=== PATIENT | male | born 1935 | race Caucasian/White ===

== ENCOUNTER 2021-06-19 10:15 | Inpatient (IN) | payer MEDICARE, OTHER ==
[2021-06-19 11:11] LABS: CHLORIDE,CL 105 mEq/L (98-106); SODIUM,NA 141 mEq/L (136-145)
[2021-06-19] MEDS ORDERED: Furosemide 40 MG/4 ML VIAL IVPUSH ONE (11:11)
[2021-06-19] MEDS ORDERED: Albuterol 0.083% 2.5 MG/3 ML Neb Soln NEB ONE (11:22)
--- NOTE | 2021-06-19 11:23 | EDM.PDOC ---
ED HPI GENERAL MEDICAL PROBLEM - General Chief Complaint: General Stated Complaint: couldnt get out of bed Time Seen by Provider: 06/19/21 10:42 Source of Information: Reports: Patient, RN History Limitations: Reports: No Limitations - History of Present Illness INITIAL COMMENTS - FREE TEXT/NARRATIVE: States that he has been getting weaker over the last few days. He stopped ta alisha his lasix about 10-12 days ago as he didn't think it was helping. His legs are very edematous. He does not wear MAYRA hose. He has been coughing up wolf sputum. He has appt tomorrow with Dr. Flores to get results of possible zio patch report. (Pt thinks that is what it is called.) He has been coughing for years he states but not usually wolf sputum. He feels tired all the time but feels that it is getting worse. No chest pain. Denies having a fever. Onset: Gradual Associated Symptoms: Denies: Fever/Chills - Related Data Allergies Allergy/AdvReac Type Severity Reaction Status Date / Time No Known Allergies Allergy Verified 06/19/21 10:26 Home Meds: Home Meds Acetaminophen [Tylenol] 650 mg PO ASDIRECTED PRN 06/19/21 [History] Apixaban [Eliquis] 5 mg PO BID 06/19/21 [History] Ascorbic Acid [Vitamin C] 1,000 mg PO DAILY 06/19/21 [History] Cholecalciferol (Vitamin D3) [Vitamin D3] 125 mcg PO Q48H 06/19/21 [History] Diltiazem [Cardizem CD] 120 mg PO DAILY 06/19/21 [History] Ferrous Sulfate 325 mg PO DAILY 06/19/21 [History] Fluticasone/Umeclidin/Vilanter [Trelegy Ellipta 200-62.5-25] 1 inh INH DAILY 06/19/21 [History] Folic Acid 1 mg PO DAILY 06/19/21 [History] Furosemide 20 mg PO DAILY 06/19/21 [History] Magnesium 250 mg PO BEDTIME 06/19/21 [History] Tamsulosin [Tamsulosin 24 Hr] 0.4 mg PO DAILY 06/19/21 [History] Vitamin E 100 unit PO DAILY 06/19/21 [History] polyethylene glycoL 3350 [MiraLAX] 17 gm PO DAILY 06/19/21 [History] Past Medical History HEENT History: Reports: Cataract, Impaired Vision Cardiovascular History: Reports: Afib, Heart Failure - Past Surgical History GI Surgical History: Reports: Hernia, Abdominal, Hernia, Inguinal, Other (See Below) Other GI Surgeries/Procedures: abdominal infection Musculoskeletal Surgical History: Reports: Other (See Below) Other Musculoskeletal Surgeries/Procedures:: back surgery Social & Family History - Tobacco Use Tobacco Use Status *Q: Former Tobacco User Used Tobacco, but Quit: Yes Month/Year Tobacco Last Used: 1985 - Caffeine Use Caffeine Use: Reports: None - Recreational Drug Use Recreational Drug Use: No - Living Situation & Occupation Living situation: Reports: , with Spouse Occupation: Retired ED ROS GENERAL - Review of Systems Review Of Systems: See Below Constitutional: Reports: Weakness, Fatigue. Denies: Fever, Chills HEENT: Reports: No Symptoms Respiratory: Reports: Shortness of Breath, Wheezing, Cough Cardiovascular: Reports: Edema. Denies: Chest Pain GI/Abdominal: Denies: Constipation, Diarrhea : Reports: No Symptoms Musculoskeletal: Reports: No Symptoms Skin: Reports: No Symptoms Neurological: Reports: No Symptoms ED EXAM, GENERAL - Physical Exam Exam: See Below Exam Limited By: No Limitations General Appearance: Alert, WD/WN, Mild Distress Eye Exam: Bilateral Eye: PERRL Ears: Normal External Exam, Normal TMs Nose: Normal Inspection, Normal Mucosa Throat/Mouth: Normal Inspection, Normal Oropharynx Head: Atraumatic, Normocephalic Neck: Normal Inspection, Supple, Non-Tender, Full Range of Motion Respiratory/Chest: Rales (to bases), Wheezing Cardiovascular: Normal Peripheral Pulses, Regular Rate, Rhythm GI/Abdominal: Normal Bowel Sounds, Soft, Non-Tender Extremities: Pedal Edema (3-4+ bilaterally.) Neurological: Alert, Oriented Skin Exam: Warm, Dry, Intact Course - Vital Signs Last Recorded V/S: Last Vital Signs Temp 98.9 F 06/19/21 16:00 Pulse 88 06/19/21 10:15 Resp 18 06/19/21 16:00 BP 108/72 06/19/21 16:00 Pulse Ox 94 L 06/19/21 16:00 - Orders/Labs/Meds Orders: Active Orders 24 hr Category Date Time Status Chest 2V [CR] Stat Exams 06/19/21 11:03 Taken CULTURE SPUTUM + SMEAR [RM] Stat Lab 06/19/21 11:06 Results Medication Orders Albuterol/Ipratropium (Albuterol/Ipratropium 3.0-0.5 Mg/3 Ml Neb Soln) 3 ml NEB Q4H PRN PRN Reason: Shortness Of Breath/wheezing Albuterol/Ipratropium (Albuterol/Ipratropium 3.0-0.5 Mg/3 Ml Neb Soln) 3 ml NEB QID [facility] Last Admin: 06/19/21 20:00 Dose: 3 ml Documented by: Admin: 06/19/21 16:19 Dose: Not Given Documented by: BRYANT Apixaban (Apixaban 5 Mg Tab) 5 mg PO BID [facility] Last Admin: 06/19/21 20:00 Dose: 5 mg Documented by: LEE Ceftriaxone Sodium (Ceftriaxone 1 Gm Vial) 1 gm IVPUSH Q24H [facility] Last Admin: 06/19/21 15:26 Dose: 1 gm Documented by: BENITO Diltiazem HCl (Diltiazem 120 Mg Cap.Cd) 120 mg PO DAILY [facility] Ferrous Sulfate (Ferrous Sulfate 324 Mg Tab.Ec) 324 mg PO DAILY [facility] Furosemide (Furosemide 40 Mg/4 Ml Vial) 40 mg IVPUSH Q24H [facility] Azithromycin 500 mg/ Sodium (Chloride) 250 mls @ 250 mls/hr IV Q24H [facility] Last Admin: 06/19/21 15:25 Dose: 250 mls/hr Documented by: BENITO Magnesium Oxide (Magnesium Oxide 250 Mg Tab) 250 mg PO BEDTIME [facility] Last Admin: 06/19/21 20:00 Dose: 250 mg Documented by: LEE Non-Formulary Medication (Fluticasone/Umeclidin/Vilanter [Trelegy Ellipta 200-62.5-25]) 1 inh INH DAILY [facility] Pantoprazole Sodium (Pantoprazole 40 Mg Vial) 40 mg IVPUSH Q12H [facility] Last Admin: 06/19/21 20:00 Dose: 40 mg Documented by: LEE Polyethylene Glycol (Polyethylene Glycol 3350 Powder 17 Gm Packet) 17 gm PO DAILY [facility] Sodium Chloride (Sodium Chloride 0.9% 10 Ml Syringe) 10 ml FLUSH ASDIRECTED PRN PRN Reason: Keep Vein Open Tamsulosin HCl (Tamsulosin 0.4 Mg Cap.Er) 0.4 mg PO DAILY [facility] Labs: Laboratory Tests 06/19/21 06/19/21 06/19/21 Range/Units 06:00 10:44 10:44 WBC 16.8 H (4.0-11.0) 10^3/uL RBC 4.21 L (4.50-6.00) x10^6/uL Hgb 12.8 L (14.0-18.0) g/dL Hct 39.4 L (42.0-52.0) % MCV 93.6 (83.0-97.0) fL MCH 30.4 (27.0-32.0) pg MCHC 32.5 (32.0-36.0) g/dL RDW Coeff of Song 14.2 (11.0-15.0) % Plt Count 84 L (150-400) 10^3/uL Immature Gran % (Auto) 1.0 (0.0-4.9) % Neut % (Auto) 84.9 H (41-71) % Lymph % (Auto) 3.3 L (24-44) % [place] % (Auto) 10.5 H (0-10) % Eos % (Auto) 0.2 (0-6) % Baso % (Auto) 0.1 (0-1) % Neut # (Auto) 14.24 H (1.80-8.00) x10^3/uL Lymph # (Auto) 0.56 L (0.60-5.00) 10^3/uL [place] # (Auto) 1.76 H (0.00-1.50) 10^3/uL Eos # (Auto) 0.03 (0.00-1.50) 10^3/uL Baso # (Auto) 0.01 (0.00-0.50) 10^3/uL Immature Gran # (Auto) 0.16 (0.00-0.49) 10^3/uL Sodium 141 (136-145) mEq/L Potassium 4.9 (3.5-5.0) mEq/L Chloride 105 (98-106) mEq/L Carbon Dioxide 27 (21-32) mmol/L BUN 24 H (7-18) mg/dL Creatinine 1.0 (0.7-1.3) mg/dL Est Cr Clr Drug Dosing 53.74 mL/min Estimated GFR (MDRD) > 60 (>=60) mL/min Glucose 103 H (75-99) mg/dL Calcium 8.1 L (8.4-10.1) mg/dL Total Bilirubin 0.9 (0.0-1.0) mg/dL AST 12 L (15-37) U/L ALT 24 (12-78) U/L Alkaline Phosphatase 50 (46-116) U/L C-Reactive Protein 2.5 H (0.2-0.8) mg/dL NT-Pro-B Natriuret Pep 2288 H (0-1000) pg/mL Total Protein 5.6 L (6.4-8.2) g/dL Albumin 2.7 L (3.4-5.0) g/dL Urine Color (YELLOW) Urine Appearance (CLEAR) Urine pH (4.5-8.0) Ur Specific [place] (1.003-1.020) Urine Protein (NEGATIVE) mg/dL Urine Glucose (UA) (NEGATIVE) mg/dL Urine Ketones (NEGATIVE) mg/dL Urine Occult Blood (NEGATIVE) Urine Nitrite (NEGATIVE) Urine Bilirubin (NEGATIVE) Urine Urobilinogen (0.2-1.0) EU/dL Ur Leukocyte Esterase (NEGATIVE) Urine RBC Urine WBC SARS CoV-2 RNA Rapid MANFRED (NEGATIVE) 06/19/21 06/19/21 Range/Units 11:29 11:40 WBC (4.0-11.0) 10^3/uL RBC (4.50-6.00) x10^6/uL Hgb (14.0-18.0) g/dL Hct (42.0-52.0) % MCV (83.0-97.0) fL MCH (27.0-32.0) pg MCHC (32.0-36.0) g/dL RDW Coeff of Song (11.0-15.0) % Plt Count (150-400) 10^3/uL Immature Gran % (Auto) (0.0-4.9) % Neut % (Auto) (41-71) % Lymph % (Auto) (24-44) % [place] % (Auto) (0-10) % Eos % (Auto) (0-6) % Baso % (Auto) (0-1) % Neut # (Auto) (1.80-8.00) x10^3/uL Lymph # (Auto) (0.60-5.00) 10^3/uL [place] # (Auto) (0.00-1.50) 10^3/uL Eos # (Auto) (0.00-1.50) 10^3/uL Baso # (Auto) (0.00-0.50) 10^3/uL Immature Gran # (Auto) (0.00-0.49) 10^3/uL Sodium (136-145) mEq/L Potassium (3.5-5.0) mEq/L Chloride (98-106) mEq/L Carbon Dioxide (21-32) mmol/L BUN (7-18) mg/dL Creatinine (0.7-1.3) mg/dL Est Cr Clr Drug Dosing mL/min Estimated GFR (MDRD) (>=60) mL/min Glucose (75-99) mg/dL Calcium (8.4-10.1) mg/dL Total Bilirubin (0.0-1.0) mg/dL AST (15-37) U/L ALT (12-78) U/L Alkaline Phosphatase (46-116) U/L C-Reactive Protein (0.2-0.8) mg/dL NT-Pro-B Natriuret Pep (0-1000) pg/mL Total Protein (6.4-8.2) g/dL Albumin (3.4-5.0) g/dL Urine Color Yellow (YELLOW) Urine Appearance Clear (CLEAR) Urine pH 7.0 (4.5-8.0) Ur Specific [place] 1.020 (1.003-1.020) Urine Protein Negative (NEGATIVE) mg/dL Urine Glucose (UA) Negative (NEGATIVE) mg/dL Urine Ketones Negative (NEGATIVE) mg/dL Urine Occult Blood Negative (NEGATIVE) Urine Nitrite Negative (NEGATIVE) Urine Bilirubin Negative (NEGATIVE) Urine Urobilinogen 0.2 (0.2-1.0) EU/dL Ur Leukocyte Esterase Negative (NEGATIVE) Urine RBC TNP Urine WBC TNP SARS CoV-2 RNA Rapid MANFRED Negative (NEGATIVE) Meds: Medications Generic Name Dose Route Start Last Admin Trade Name Freq PRN Reason Stop Dose Admin Albuterol/Ipratropium 3 ml 06/19/21 12:25 Albuterol/Ipratropium 3.0-0.5 Mg/3 Ml Neb Soln NEB Q4H PRN Shortness Of Breath/wheezing Albuterol/Ipratropium 3 ml 06/19/21 16:00 06/19/21 20:00 Albuterol/Ipratropium 3.0-0.5 Mg/3 Ml Neb Soln NEB 3 ml QID STEPHANIA Administration Apixaban 5 mg 06/19/21 20:00 06/19/21 20:00 Apixaban 5 Mg Tab PO 5 mg BID [facility] Administration Ceftriaxone Sodium 1 gm 06/19/21 16:00 06/19/21 15:26 Ceftriaxone 1 Gm Vial IVPUSH 1 gm Q24H [facility] Administration Diltiazem HCl 120 mg 06/20/21 08:00 Diltiazem 120 Mg Cap.Cd PO DAILY [facility] Ferrous Sulfate 324 mg 06/20/21 08:00 Ferrous Sulfate 324 Mg Tab.Ec PO DAILY [facility] Furosemide 40 mg 06/20/21 08:00 Furosemide 40 Mg/4 Ml Vial IVPUSH Q24H [facility] Azithromycin 500 mg/ Sodium 250 mls @ 250 mls/hr 06/19/21 16:00 06/19/21 15:25 Chloride IV 250 mls/hr Q24H [facility] Administration Magnesium Oxide 250 mg 06/19/21 20:00 06/19/21 20:00 Magnesium Oxide 250 Mg Tab PO 250 mg BEDTIME [facility] Administration Non-Formulary Medication 1 inh 06/20/21 08:00 Fluticasone/Umeclidin/Vilanter [Trelegy Ellipta 200-62.5-25] INH DAILY [facility] Pantoprazole Sodium 40 mg 06/19/21 20:00 06/19/21 20:00 Pantoprazole 40 Mg Vial IVPUSH 40 mg Q12H [facility] Administration Polyethylene Glycol 17 gm 06/20/21 08:00 Polyethylene Glycol 3350 Powder 17 Gm Packet PO DAILY [facility] Sodium Chloride 10 ml 06/19/21 12:25 Sodium Chloride 0.9% 10 Ml Syringe FLUSH ASDIRECTED PRN Keep Vein Open Tamsulosin HCl 0.4 mg 06/20/21 08:00 Tamsulosin 0.4 Mg Cap.Er PO DAILY [facility] Discontinued Medications Generic Name Dose Route Start Last Admin Trade Name Freq PRN Reason Stop Dose Admin Albuterol 2.5 mg 06/19/21 11:22 06/19/21 11:27 Albuterol 0.083% 2.5 Mg/3 Ml Neb Soln NEB 06/19/21 11:23 2.5 mg ONETIME ONE Administration Albuterol/Ipratropium 3 ml 06/19/21 16:00 06/19/21 15:24 Albuterol/Ipratropium 3.0-0.5 Mg/3 Ml Neb Soln NEB 3 ml Q4H [facility] Administration Furosemide 40 mg 06/19/21 11:11 06/19/21 11:16 Furosemide 40 Mg/4 Ml Vial IVPUSH 06/19/21 11:12 40 mg ONETIME ONE Administration - Re-Assessments/Exams Free Text/Narrative Re-Assessment/Exam: 06/20/21 01:33 Pt will be admitted for IV antibiotics and IV lasix. Will try to diuresis him and get him to stay on his Lasix. Will recheck labs in the morning. Discussed pt with Dr. Mccann. Departure - Departure Time of Disposition: 13:00 Disposition: Admitted As Inpatient 65 Clinical Impression: Pneumonia, CHF, Congestive heart failure - Discharge Information *PRESCRIPTION DRUG MONITORING PROGRAM REVIEWED*: Not Applicable *COPY OF PRESCRIPTION DRUG MONITORING REPORT IN PATIENT DAVID: Not Applicable Sepsis Event Note (ED) - Evaluation Sepsis Screening Result: No Definite Risk - Problem List & Annotations (1) CHF, Congestive heart failure SNOMED Code(s): 70805548 Code(s): I50.9 - HEART FAILURE, UNSPECIFIED Status: Acute Priority: High Current Visit: Yes (2) Pneumonia SNOMED Code(s): 987341974 Code(s): J18.9 - PNEUMONIA, UNSPECIFIED ORGANISM Status: Acute Priority: High Current Visit: Yes - Problem List Review Problem List Initiated/Reviewed/Updated: Yes - My Orders Last 24 Hours: My Active Orders 06/19/21 11:03 Chest 2V [CR] Stat 06/19/21 11:06 CULTURE SPUTUM + SMEAR [RM] Stat - Assessment/Plan Admission H&P: Please use this note as an admission H&P Last 24 Hours: My Active Orders 06/19/21 11:03 Chest 2V [CR] Stat 06/19/21 11:06 CULTURE SPUTUM + SMEAR [RM] Stat
[2021-06-19] MEDS ORDERED: Albuterol/Ipratropium 3.0-0.5 MG/3 ML Neb Soln NEB PRN (12:25)
[2021-06-19] MEDS ORDERED: Sodium Chloride 0.9% 10 ML Syringe FLUSH PRN (12:25)
[2021-06-19] MEDS ORDERED: Non-Formulary Medication 1 Each (Budesonide/Formoterol 6 GM Inhaler) INH SCH (12:45)
[2021-06-19] MEDS ORDERED: Azithromycin 500 MG in Sodium Chloride 0.9% 250 ML IV SCH (16:00)
[2021-06-19] MEDS ORDERED: cefTRIAXone 1 GM Vial IVPUSH SCH (16:00)
[2021-06-19] MEDS ORDERED: Albuterol/Ipratropium 3.0-0.5 MG/3 ML Neb Soln NEB SCH (16:00)
[2021-06-19] MEDS: Albuterol/Ipratropium 3.0-0.5 MG/3 ML Neb Soln NEB SCH ×2 (16:19→20:00)
[2021-06-19] MEDS: Apixaban 5 MG Tab PO SCH (20:00)
[2021-06-19] MEDS: Pantoprazole 40 MG Vial IVPUSH SCH (20:00)
[2021-06-20] MEDS: Apixaban 5 MG Tab PO SCH ×2 (07:32→19:41)
[2021-06-20] MEDS: Diltiazem 120 MG Cap.CD PO SCH (07:32)
[2021-06-20] MEDS: Ferrous Sulfate 324 MG Tab.EC PO SCH (07:32)
[2021-06-20] MEDS: Albuterol/Ipratropium 3.0-0.5 MG/3 ML Neb Soln NEB SCH ×4 (07:33→19:41)
[2021-06-20] MEDS: Tamsulosin 0.4 MG Cap.ER PO SCH (07:33)
[2021-06-20] MEDS: Pantoprazole 40 MG Vial IVPUSH SCH ×2 (07:33→19:41)
[2021-06-20] MEDS: Polyethylene Glycol 3350 Powder 17 GM Packet PO SCH (07:33)
[2021-06-20 07:43] LABS: CHLORIDE,CL 105 mEq/L (98-106); SODIUM,NA 141 mEq/L (136-145)
[2021-06-20] MEDS ORDERED: Furosemide 40 MG/4 ML VIAL IVPUSH SCH (08:00)
[2021-06-20] MEDS: UMECLIDINIUM INH SCH (09:44)
[2021-06-20] MEDS: FLUTICASONE INH SCH (09:44)
[2021-06-20] MEDS: VILANTEROL INH SCH (09:44)
--- NOTE | 2021-06-20 11:35 | PN ---
DATE: 06/20/2021 S: Mr. Woodson was admitted by Paula Foley for pneumonia and CHF, and an elevated white count and CRP, and his proBNP was up. I did review his chest x-ray and this looks to be more of a pneumonic process. He has had a little bit of tachycardia and does suffer from atrial fibrillation. Rate right now is 78. Blood pressures have been fine. He is actually down I believe over 2 pounds after getting IV Lasix. O: GENERAL: This gentleman is pleasant and cooperative. He is resting comfortably in a recliner and does not appear in distress. NECK: Neck veins are nondistended. LUNGS: He has rales in his right mid and base, but left side appears clear. CARDIAC: Cardiac tones are irregular, but controlled. ABDOMEN: Nontender. He has scant ankle edema at this time. ASSESSMENT: 1. COMMUNITY-ACQUIRED PNEUMONIA. 2. 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 P: We will get a repeat echo on him. Continue IV antibiotics. Overall, he looks clinically well. We will have PT see him for strengthening as his age precludes him from getting around a lot at home. ANTHONY/BRONWYN /[id number]
[2021-06-20] MEDS: Levofloxacin/Dextrose 5%-Water 500 MG in Premix Bag 1 BAG IV SCH (11:55)
[2021-06-20] MEDS: Temazepam 15 MG Cap PO PRN (19:41)
[2021-06-21 06:55] LABS: CHLORIDE,CL 104 mEq/L (98-106); SODIUM,NA 139 mEq/L (136-145)
[2021-06-21] MEDS: Polyethylene Glycol 3350 Powder 17 GM Packet PO SCH (07:48)
[2021-06-21] MEDS: Pantoprazole 40 MG Vial IVPUSH SCH ×2 (07:48→20:10)
[2021-06-21] MEDS: Albuterol/Ipratropium 3.0-0.5 MG/3 ML Neb Soln NEB SCH ×4 (07:48→20:11)
[2021-06-21] MEDS: Diltiazem 120 MG Cap.CD PO SCH (07:48)
[2021-06-21] MEDS: Ferrous Sulfate 324 MG Tab.EC PO SCH (07:49)
[2021-06-21] MEDS: Tamsulosin 0.4 MG Cap.ER PO SCH (07:49)
[2021-06-21] MEDS: Furosemide 40 MG Tab PO SCH (07:49)
[2021-06-21] MEDS: Apixaban 5 MG Tab PO SCH ×2 (07:49→20:11)
[2021-06-21] MEDS: UMECLIDINIUM INH SCH (08:00)
[2021-06-21] MEDS: VILANTEROL INH SCH (08:00)
[2021-06-21] MEDS: FLUTICASONE INH SCH (08:00)
--- NOTE | 2021-06-21 08:15 | PCM.PN ---
- General Info Date of Service: 06/21/21 Admission Dx/Problem (Free Text): RLL Pneumonia Acute on chronic diastolic CHF Subjective Update: Patient up resting in chair. Denies shortness of breath. Admits to cough but states "have had that for 30 years". Productive of wolf sputum at times. In itial culture shows gram negative rods. Await full sensitivities/ID. Afebrile. Blood pressure is stable. Has been eating well. Is weak. Did fall yesterday with PT. Sustained significant bruising to right arm, skin tear. Patient states he tripped when the walker caught on the sallie. Does require assist for transfers, has difficulty getting up from the toilet, chair. Functional Status: Reports: Pain Controlled, Tolerating Diet, Ambulating - Review of Systems General: Reports: Weakness, Fatigue, Malaise HEENT: Reports: Rhinitis. Denies: Ear Pain, Sinus Congestion Pulmonary: Reports: Shortness of Breath, Cough, Sputum Cardiovascular: Reports: Edema. Denies: Chest Pain, Lightheadedness Gastrointestinal: Denies: Abdominal Pain, Nausea, Vomiting Genitourinary: Reports: No Symptoms Musculoskeletal: Reports: Arm Pain, Back Pain Skin: Reports: Bruising, Other (bruising noted to arms, chest) Neurological: Reports: Weakness - Patient Data Vitals - Most Recent: Last Vital Signs Temp 97.1 F 06/21/21 03:47 Pulse 112 H 06/21/21 07:48 Resp 20 06/21/21 03:47 BP 123/82 06/21/21 07:48 Pulse Ox 93 L 06/21/21 03:47 Weight - Most Recent: 197 lb 9.6 oz I&O - Last 24 Hours: Intake & Output 06/20/21 06/21/21 06/21/21 22:59 06:59 14:59 Intake Total 700 300 Output Total 900 350 Balance -200 -50 Lab Results Last 24 Hours: Laboratory Results - last 24 hr 06/21/21 06/21/21 Range/Units 06:40 06:40 WBC 12.9 H (4.0-11.0) 10^3/uL RBC 3.87 L (4.50-6.00) x10^6/uL Hgb 12.0 L (14.0-18.0) g/dL Hct 36.0 L (42.0-52.0) % MCV 93.0 (83.0-97.0) fL MCH 31.0 (27.0-32.0) pg MCHC 33.3 (32.0-36.0) g/dL RDW Coeff of Song 14.5 (11.0-15.0) % Plt Count 72 L (150-400) 10^3/uL Immature Gran % (Auto) 1.8 (0.0-4.9) % Neut % (Auto) 84.4 H (41-71) % Lymph % (Auto) 4.0 L (24-44) % [place] % (Auto) 9.6 (0-10) % Eos % (Auto) 0.1 (0-6) % Baso % (Auto) 0.1 (0-1) % Neut # (Auto) 10.85 H (1.80-8.00) x10^3/uL Lymph # (Auto) 0.52 L (0.60-5.00) 10^3/uL [place] # (Auto) 1.24 (0.00-1.50) 10^3/uL Eos # (Auto) 0.01 (0.00-1.50) 10^3/uL Baso # (Auto) 0.01 (0.00-0.50) 10^3/uL Immature Gran # (Auto) 0.23 (0.00-0.49) 10^3/uL Sodium 139 (136-145) mEq/L Potassium 4.2 (3.5-5.0) mEq/L Chloride 104 (98-106) mEq/L Carbon Dioxide 28 (21-32) mmol/L BUN 25 H (7-18) mg/dL Creatinine 0.9 (0.7-1.3) mg/dL Est Cr Clr Drug Dosing 59.71 mL/min Estimated GFR (MDRD) > 60 (>=60) mL/min Glucose 112 H (75-99) mg/dL Calcium 8.0 L (8.4-10.1) mg/dL C-Reactive Protein 2.7 H (0.2-0.8) mg/dL Darian Results Last 24 Hours: Microbiology 06/19/21 13:11 Aerobic Blood Culture - Preliminary Blood - Venous - Lab Draw NO GROWTH AFTER 1 DAY Anaerobic Blood Culture - Preliminary NO GROWTH AFTER 1 DAY 06/19/21 13:11 Aerobic Blood Culture - Preliminary Blood - Venous NO GROWTH AFTER 1 DAY Anaerobic Blood Culture - Preliminary NO GROWTH AFTER 1 DAY 06/19/21 11:06 Gram Stain - Final Sputum - Expectorated Sputum Culture - Preliminary Gram Negative Rods Med Orders - Current: Current Medications Albuterol/Ipratropium (Albuterol/Ipratropium 3.0-0.5 Mg/3 Ml Neb Soln) 3 ml NEB Q4H PRN PRN Reason: Shortness Of Breath/wheezing Albuterol/Ipratropium (Albuterol/Ipratropium 3.0-0.5 Mg/3 Ml Neb Soln) 3 ml NEB QID [facility] Last Admin: 06/21/21 07:48 Dose: 3 ml Documented by: Apixaban (Apixaban 5 Mg Tab) 5 mg PO BID [facility] Last Admin: 06/21/21 07:49 Dose: 5 mg Documented by: Diltiazem HCl (Diltiazem 120 Mg Cap.Cd) 120 mg PO DAILY [facility] Last Admin: 06/21/21 07:48 Dose: 120 mg Documented by: Ferrous Sulfate (Ferrous Sulfate 324 Mg Tab.Ec) 324 mg PO DAILY [facility] Last Admin: 06/21/21 07:49 Dose: 324 mg Documented by: Furosemide (Furosemide 40 Mg Tab) 40 mg PO DAILY [facility] Last Admin: 06/21/21 07:49 Dose: 40 mg Documented by: Levofloxacin/Dextrose 500 mg/ (Premix) 100 mls @ 100 mls/hr IV Q24H [facility] Last Admin: 06/20/21 11:55 Dose: 100 mls/hr Documented by: Magnesium Oxide (Magnesium Oxide 250 Mg Tab) 250 mg PO BEDTIME [facility] Last Admin: 06/20/21 19:41 Dose: 250 mg Documented by: Fluticasone/Umeclidinium/Vilanterol [Trelegy Ellipta 200-62.5- 25mcg] Ptom 0 inh INH DAILY [facility] Last Admin: 06/21/21 08:00 Dose: 1 inh Documented by: Pantoprazole Sodium (Pantoprazole 40 Mg Vial) 40 mg IVPUSH Q12H [facility] Last Admin: 06/21/21 07:48 Dose: 40 mg Documented by: Polyethylene Glycol (Polyethylene Glycol 3350 Powder 17 Gm Packet) 17 gm PO DAILY [facility] Last Admin: 06/21/21 07:48 Dose: 17 gm Documented by: Sodium Chloride (Sodium Chloride 0.9% 10 Ml Syringe) 10 ml FLUSH ASDIRECTED PRN PRN Reason: Keep Vein Open Tamsulosin HCl (Tamsulosin 0.4 Mg Cap.Er) 0.4 mg PO DAILY [facility] Last Admin: 06/21/21 07:49 Dose: 0.4 mg Documented by: Temazepam (Temazepam 15 Mg Cap) 15 mg PO BEDTIME PRN PRN Reason: Insomnia Last Admin: 06/20/21 19:41 Dose: 15 mg Documented by: Discontinued Medications Albuterol (Albuterol 0.083% 2.5 Mg/3 Ml Neb Soln) 2.5 mg NEB ONETIME ONE Stop: 06/19/21 11:23 Last Admin: 06/19/21 11:27 Dose: 2.5 mg Documented by: Albuterol/Ipratropium (Albuterol/Ipratropium 3.0-0.5 Mg/3 Ml Neb Soln) 3 ml NEB Q4H [facility] Last Admin: 06/19/21 15:24 Dose: 3 ml Documented by: Ceftriaxone Sodium (Ceftriaxone 1 Gm Vial) 1 gm IVPUSH Q24H [facility] Last Admin: 06/19/21 15:26 Dose: 1 gm Documented by: Furosemide (Furosemide 40 Mg/4 Ml Vial) 40 mg IVPUSH ONETIME ONE Stop: 06/19/21 11:12 Last Admin: 06/19/21 11:16 Dose: 40 mg Documented by: Furosemide (Furosemide 40 Mg/4 Ml Vial) 40 mg IVPUSH Q24H [facility] Last Admin: 06/20/21 07:34 Dose: 40 mg Documented by: Azithromycin 500 mg/ Sodium (Chloride) 250 mls @ 250 mls/hr IV Q24H [facility] Last Admin: 06/19/21 15:25 Dose: 250 mls/hr Documented by: - Exam General: Alert, Oriented, Cooperative HEENT: Mucous Membr. Moist/[place] Neck: Supple Lungs: Decreased Breath Sounds, Crackles (RLL) Cardiovascular: Irregular Rhythm GI/Abdominal Exam: Normal Bowel Sounds, Soft, Non-Tender Extremities: Pedal Edema (1+), Other (bruising to arms, open area to elbow with tegaderm present) Skin: Ecchymosis Wound/Incisions: Drainage (blood noted from open area on elbow) Neurological: No New Focal Deficit Psy/Mental Status: Alert - Patient Data Lab Results Last 24 hrs: Laboratory Results - last 24 hr 06/21/21 06/21/21 Range/Units 06:40 06:40 WBC 12.9 H (4.0-11.0) 10^3/uL RBC 3.87 L (4.50-6.00) x10^6/uL Hgb 12.0 L (14.0-18.0) g/dL Hct 36.0 L (42.0-52.0) % MCV 93.0 (83.0-97.0) fL MCH 31.0 (27.0-32.0) pg MCHC 33.3 (32.0-36.0) g/dL RDW Coeff of Song 14.5 (11.0-15.0) % Plt Count 72 L (150-400) 10^3/uL Immature Gran % (Auto) 1.8 (0.0-4.9) % Neut % (Auto) 84.4 H (41-71) % Lymph % (Auto) 4.0 L (24-44) % [place] % (Auto) 9.6 (0-10) % Eos % (Auto) 0.1 (0-6) % Baso % (Auto) 0.1 (0-1) % Neut # (Auto) 10.85 H (1.80-8.00) x10^3/uL Lymph # (Auto) 0.52 L (0.60-5.00) 10^3/uL [place] # (Auto) 1.24 (0.00-1.50) 10^3/uL Eos # (Auto) 0.01 (0.00-1.50) 10^3/uL Baso # (Auto) 0.01 (0.00-0.50) 10^3/uL Immature Gran # (Auto) 0.23 (0.00-0.49) 10^3/uL Sodium 139 (136-145) mEq/L Potassium 4.2 (3.5-5.0) mEq/L Chloride 104 (98-106) mEq/L Carbon Dioxide 28 (21-32) mmol/L BUN 25 H (7-18) mg/dL Creatinine 0.9 (0.7-1.3) mg/dL Est Cr Clr Drug Dosing 59.71 mL/min Estimated GFR (MDRD) > 60 (>=60) mL/min Glucose 112 H (75-99) mg/dL Calcium 8.0 L (8.4-10.1) mg/dL C-Reactive Protein 2.7 H (0.2-0.8) mg/dL Result Diagrams: 06/21/21 06:40 06/21/21 06:40 Darian Results Last 24 hrs: Microbiology 06/19/21 13:11 Aerobic Blood Culture - Preliminary Blood - Venous - Lab Draw NO GROWTH AFTER 1 DAY Anaerobic Blood Culture - Preliminary NO GROWTH AFTER 1 DAY 06/19/21 13:11 Aerobic Blood Culture - Preliminary Blood - Venous NO GROWTH AFTER 1 DAY Anaerobic Blood Culture - Preliminary NO GROWTH AFTER 1 DAY 06/19/21 11:06 Gram Stain - Final Sputum - Expectorated Sputum Culture - Preliminary Gram Negative Rods Sepsis Event Note - Evaluation Sepsis Screening Result: No Definite Risk - Focused Exam Vital Signs: Vital Signs Temp Pulse Resp BP BP Pulse Ox 06/21/21 07:48 112 H 123/82 06/21/21 03:47 97.1 F 20 110/72 93 L 06/21/21 00:00 96.6 F L 20 126/68 93 L - Problem List & Annotations (1) Pneumonia SNOMED Code(s): 944174589 Code(s): J18.9 - PNEUMONIA, UNSPECIFIED ORGANISM Status: Acute Priority: High Current Visit: Yes (2) CHF, Congestive heart failure SNOMED Code(s): 08520616 Code(s): I50.9 - HEART FAILURE, UNSPECIFIED Status: Acute Priority: High Current Visit: Yes - Problem List Review Problem List Initiated/Reviewed/Updated: Yes - Assessment Assessment:: RLL Pneumonia Acute on chronic diastolic congestive heart failure - Plan Plan:: Will continue with IV antibiotics for pneumonia. DuoNebs as directed. Lasix for CHF. Echocardiogram was done, is stable. Labs show WBC of 12.9, essentially unchanged from yesterday. CPR is 2.7, down slightly. Sputum culture shows gram negative rods, waiting on full culture report. Electrolytes are normal. Continue with physical therapy for weakness. Repeat labs in am. Continue IV antibiotics and PT. Possible discharge in the next 1-2 days pending response to treatment and if weakness/stability improves.
[2021-06-21] MEDS: Levofloxacin/Dextrose 5%-Water 500 MG in Premix Bag 1 BAG IV SCH (12:01)
[2021-06-21] MEDS: Temazepam 15 MG Cap PO PRN (20:18)
[2021-06-22] MEDS: Pantoprazole 40 MG Vial IVPUSH SCH (08:00)
[2021-06-22] MEDS: Albuterol/Ipratropium 3.0-0.5 MG/3 ML Neb Soln NEB SCH (08:00)
[2021-06-22] MEDS: Tamsulosin 0.4 MG Cap.ER PO SCH (08:01)
[2021-06-22] MEDS: Furosemide 40 MG Tab PO SCH (08:02)
[2021-06-22] MEDS: Ferrous Sulfate 324 MG Tab.EC PO SCH (08:02)
[2021-06-22] MEDS: Apixaban 5 MG Tab PO SCH (08:02)
[2021-06-22] MEDS: Polyethylene Glycol 3350 Powder 17 GM Packet PO SCH (08:03)
[2021-06-22] MEDS: Diltiazem 120 MG Cap.CD PO SCH (08:04)
[2021-06-22] MEDS: UMECLIDINIUM INH SCH (08:05)
[2021-06-22] MEDS: VILANTEROL INH SCH (08:05)
[2021-06-22] MEDS: FLUTICASONE INH SCH (08:05)
[2021-06-22 08:11] VITALS: BP 108/69; PULSE 107
--- NOTE | 2021-06-22 10:22 | PCM.DCSUM1 ---
Discharge Summary - Hospital Course Free Text/Narrative:: Jesus Alberto is an 86 year old male who presented to ER with complaints of getting weak. He had stopped taking his Lasix as he did not feel it was helping him and now notes his edema has gotten much worse. Also noted increased cough with wolf sputum. More short of breath. Admits has had a persistent cough for many years due to chronic lung disease but had gotten more productive. Has had more falls. Walking has become more difficult. Denied chest pain. No fevers. Chest xray done in ER does show Diagnosis: Stroke: No Modified [place] Scale: No Symptoms at All Modified [place] Scale Score: 0 - Discharge Data Discharge Date: 06/22/21 Discharge Disposition: DC/Tfer to SNF 03 Condition: Good - Referral to Home Health Primary Care Physician: Tung Flores MD - Discharge Diagnosis/Problem(s) (1) Pneumonia SNOMED Code(s): 024077636 ICD Code: J18.9 - PNEUMONIA, UNSPECIFIED ORGANISM Status: Acute Priority: High Current Visit: Yes (2) CHF, Congestive heart failure SNOMED Code(s): 03487014 ICD Code: I50.9 - HEART FAILURE, UNSPECIFIED Status: Acute Priority: High Current Visit: Yes (3) Weakness SNOMED Code(s): 50003074 ICD Code: R53.1 - WEAKNESS Status: Acute Current Visit: Yes - Patient Summary/Data Complications: none Consults: Consultations 06/19/21 13:13 PT Evaluation and Treatment [CONS] Routine 06/20/21 10:20 Consult to Physical Therapy [PT Evaluation and Treatment] [CONS] Routine Hospital Course: Patient remains weak. Has difficulty ambulating as a result. Did fall on day 2 while walking with PT. STates has difficult time with ankles and knees. Edema still 2+ in legs. Denies feeling more short of breath. Lung sounds note crackles in the bases and rhonchi throughout. Oxygen sats over 90% on room air. Afebrile. WBC increased to 14 again today but CRP is down to 1.7. Sputum culture did grow pseudomonas, sensitive to Levaquin. Complains of constipation today. Will give dulcolax suppository today. Appetite has been good so "making the bowels worse". Did discuss transfer to senior living due to weakness, inability to ambulate well and need for ongoing IV antibiotics. Will repeat labs in am. - Patient Instructions Diet: Low Sodium Activity: As Tolerated - Discharge Plan *PRESCRIPTION DRUG MONITORING PROGRAM REVIEWED*: Not Applicable *COPY OF PRESCRIPTION DRUG MONITORING REPORT IN PATIENT DAVID: Not Applicable Home Medications: Home Meds Acetaminophen [Tylenol] 650 mg PO ASDIRECTED PRN 06/19/21 [History] Apixaban [Eliquis] 5 mg PO BID 06/19/21 [History] Ascorbic Acid [Vitamin C] 1,000 mg PO DAILY 06/19/21 [History] Cholecalciferol (Vitamin D3) [Vitamin D3] 125 mcg PO Q48H 06/19/21 [History] Diltiazem [Cardizem CD] 120 mg PO DAILY 06/19/21 [History] Ferrous Sulfate 325 mg PO DAILY 06/19/21 [History] Fluticasone/Umeclidin/Vilanter [Trelegy Ellipta 200-62.5-25] 1 inh INH DAILY 06/19/21 [History] Folic Acid 1 mg PO DAILY 06/19/21 [History] Furosemide 20 mg PO DAILY 06/19/21 [History] Magnesium 250 mg PO BEDTIME 06/19/21 [History] Tamsulosin [Tamsulosin 24 Hr] 0.4 mg PO DAILY 06/19/21 [History] Vitamin E 100 unit PO DAILY 06/19/21 [History] polyethylene glycoL 3350 [MiraLAX] 17 gm PO DAILY 06/19/21 [History] Albuterol [Proventil Neb Soln] 2.5 mg NEB DAILY 06/21/21 [History] Arformoterol [Brovana] 1 puff INH BID 06/21/21 [History] Budesonide [Pulmicort] 0.25 mg NEB BID 06/21/21 [History] Ipratropium [Atrovent] 0.5 mg NEB DAILY 06/21/21 [History] Forms: ED Department Discharge Referrals: Tung Flores MD [Primary Care Provider] - - Discharge Summary/Plan Comment DC Time >30 min.: Yes Total # of Minutes for Discharge Time: 40 - General Info Date of Service: 06/22/21 Admission Dx/Problem (Free Text: RLL Pneumonia Acute on chronic diastolic CHF Functional Status: Reports: Pain Controlled, Tolerating Diet. Denies: Ambulating - Review of Systems General: Reports: Weakness, Fatigue, Malaise HEENT: Denies: Ear Pain, Headaches, Sinus Congestion, Rhinitis Pulmonary: Reports: Shortness of Breath, Cough, Sputum Cardiovascular: Reports: Edema. Denies: Chest Pain, Lightheadedness Gastrointestinal: Reports: Constipation. Denies: Abdominal Pain, Decreased Appetite, Diarrhea, Nausea Genitourinary: Reports: Incontinence Musculoskeletal: Reports: Back Pain, Leg Pain Skin: Reports: Bruising Neurological: Reports: Weakness - Patient Data Vitals - Most Recent: Last Vital Signs Temp 97.8 F 06/22/21 08:00 Pulse 107 H 06/22/21 08:04 Resp 20 06/22/21 08:00 BP 108/69 06/22/21 08:04 Pulse Ox 93 L 06/22/21 08:00 Weight - Most Recent: 194 lb I&O - Last 24 hours: Intake & Output 06/21/21 06/22/21 06/22/21 22:59 06:59 14:59 Intake Total 1200 300 Output Total 450 Balance 1200 -150 Lab Results - Last 24 hrs: Laboratory Results - last 24 hr 06/22/21 06/22/21 Range/Units 06:00 06:00 WBC 14.4 H (4.0-11.0) 10^3/uL RBC 3.79 L (4.50-6.00) x10^6/uL Hgb 11.8 L (14.0-18.0) g/dL Hct 35.0 L (42.0-52.0) % MCV 92.3 (83.0-97.0) fL MCH 31.1 (27.0-32.0) pg MCHC 33.7 (32.0-36.0) g/dL RDW Coeff of Song 14.5 (11.0-15.0) % Plt Count 83 L (150-400) 10^3/uL Immature Gran % (Auto) 1.7 (0.0-4.9) % Neut % (Auto) 85.6 H (41-71) % Lymph % (Auto) 3.5 L (24-44) % Wood % (Auto) 9.0 (0-10) % Eos % (Auto) 0.1 (0-6) % Baso % (Auto) 0.1 (0-1) % Neut # (Auto) 12.34 H (1.80-8.00) x10^3/uL Lymph # (Auto) 0.50 L (0.60-5.00) 10^3/uL Wood # (Auto) 1.29 (0.00-1.50) 10^3/uL Eos # (Auto) 0.01 (0.00-1.50) 10^3/uL Baso # (Auto) 0.02 (0.00-0.50) 10^3/uL Immature Gran # (Auto) 0.25 (0.00-0.49) 10^3/uL Sodium 136 (136-145) mEq/L Potassium 4.5 (3.5-5.0) mEq/L Chloride 102 (98-106) mEq/L Carbon Dioxide 27 (21-32) mmol/L BUN 29 H (7-18) mg/dL Creatinine 1.2 (0.7-1.3) mg/dL Est Cr Clr Drug Dosing 44.78 mL/min Estimated GFR (MDRD) 57 L (>=60) mL/min Glucose 124 H (75-99) mg/dL Calcium 8.1 L (8.4-10.1) mg/dL C-Reactive Protein 1.7 H (0.2-0.8) mg/dL MANISH Results - Last 24 hrs: Microbiology 06/19/21 13:11 Aerobic Blood Culture - Preliminary Blood - Venous - Lab Draw NO GROWTH AFTER 2 DAYS Anaerobic Blood Culture - Preliminary NO GROWTH AFTER 2 DAYS 06/19/21 13:11 Aerobic Blood Culture - Preliminary Blood - Venous NO GROWTH AFTER 2 DAYS Anaerobic Blood Culture - Preliminary NO GROWTH AFTER 2 DAYS 06/19/21 11:06 Gram Stain - Final Sputum - Expectorated Sputum Culture - Final Pseudomonas Aeruginosa Med Orders - Current: Current Medications Albuterol/Ipratropium (Albuterol/Ipratropium 3.0-0.5 Mg/3 Ml Neb Soln) 3 ml NEB Q4H PRN PRN Reason: Shortness Of Breath/wheezing Albuterol/Ipratropium (Albuterol/Ipratropium 3.0-0.5 Mg/3 Ml Neb Soln) 3 ml NEB QID [facility] Last Admin: 06/22/21 08:00 Dose: 3 ml Documented by: Apixaban (Apixaban 5 Mg Tab) 5 mg PO BID [facility] Last Admin: 06/22/21 08:02 Dose: 5 mg Documented by: Diltiazem HCl (Diltiazem 120 Mg Cap.Cd) 120 mg PO DAILY [facility] Last Admin: 06/22/21 08:04 Dose: 120 mg Documented by: Ferrous Sulfate (Ferrous Sulfate 324 Mg Tab.Ec) 324 mg PO DAILY [facility] Last Admin: 06/22/21 08:02 Dose: 324 mg Documented by: Furosemide (Furosemide 40 Mg Tab) 40 mg PO DAILY [facility] Last Admin: 06/22/21 08:02 Dose: 40 mg Documented by: Levofloxacin/Dextrose 500 mg/ (Premix) 100 mls @ 100 mls/hr IV Q24H [facility] Last Admin: 06/21/21 12:01 Dose: 100 mls/hr Documented by: Magnesium Oxide (Magnesium Oxide 250 Mg Tab) 250 mg PO BEDTIME [facility] Last Admin: 06/21/21 20:11 Dose: 250 mg Documented by: Fluticasone/Umeclidinium/Vilanterol [Trelegy Ellipta 200-62.5- 25mcg] Ptom 0 inh INH DAILY [facility] Last Admin: 06/22/21 08:05 Dose: 1 inh Documented by: Pantoprazole Sodium (Pantoprazole 40 Mg Vial) 40 mg IVPUSH Q12H [facility] Last Admin: 06/22/21 08:00 Dose: 40 mg Documented by: Polyethylene Glycol (Polyethylene Glycol 3350 Powder 17 Gm Packet) 17 gm PO DAILY [facility] Last Admin: 06/22/21 08:03 Dose: 17 gm Documented by: Sodium Chloride (Sodium Chloride 0.9% 10 Ml Syringe) 10 ml FLUSH ASDIRECTED PRN PRN Reason: Keep Vein Open Tamsulosin HCl (Tamsulosin 0.4 Mg Cap.Er) 0.4 mg PO DAILY [facility] Last Admin: 06/22/21 08:01 Dose: 0.4 mg Documented by: Temazepam (Temazepam 15 Mg Cap) 15 mg PO BEDTIME PRN PRN Reason: Insomnia Last Admin: 06/21/21 20:18 Dose: 15 mg Documented by: Discontinued Medications Albuterol (Albuterol 0.083% 2.5 Mg/3 Ml Neb Soln) 2.5 mg NEB ONETIME ONE Stop: 06/19/21 11:23 Last Admin: 06/19/21 11:27 Dose: 2.5 mg Documented by: Albuterol/Ipratropium (Albuterol/Ipratropium 3.0-0.5 Mg/3 Ml Neb Soln) 3 ml NEB Q4H [facility] Last Admin: 06/19/21 15:24 Dose: 3 ml Documented by: Ceftriaxone Sodium (Ceftriaxone 1 Gm Vial) 1 gm IVPUSH Q24H [facility] Last Admin: 06/19/21 15:26 Dose: 1 gm Documented by: Furosemide (Furosemide 40 Mg/4 Ml Vial) 40 mg IVPUSH ONETIME ONE Stop: 06/19/21 11:12 Last Admin: 06/19/21 11:16 Dose: 40 mg Documented by: Furosemide (Furosemide 40 Mg/4 Ml Vial) 40 mg IVPUSH Q24H [facility] Last Admin: 06/20/21 07:34 Dose: 40 mg Documented by: Azithromycin 500 mg/ Sodium (Chloride) 250 mls @ 250 mls/hr IV Q24H [facility] Last Admin: 06/19/21 15:25 Dose: 250 mls/hr Documented by: - Exam General: Reports: Alert, Oriented, Cooperative HEENT: Reports: Mucous Membr. Moist/[place] Neck: Reports: Supple Lungs: Reports: Decreased Breath Sounds, Crackles, Rhonchi Cardiovascular: Reports: Irregular Rhythm GI/Abdominal Exam: Normal Bowel Sounds, Soft, Non-Tender Extremities: Pedal Edema (2+ pitting edema) Skin: Reports: Warm, Dry, Ecchymosis Neurological: Reports: No New Focal Deficit
== END 2021-06-22 10:17 | DRG 291 ==
LOC: SUPCPDRO 10:15 → CC.ED 10:15 → UNDOADMIN 12:04 → CC.MS 12:04
PROVIDERS: ADMIT Physician Assistant Medical; ATTEND Family Medicine
DX: I50.9 Heart failure, unspecified (principal); I50.33 Acute on chronic diastolic (congestive) heart failure; J18.9 Pneumonia, unspecified organism; R53.1 Weakness; I11.0 Hypertensive heart disease with heart failure; H54.7 Unspecified visual loss; I48.91 Unspecified atrial fibrillation; Z87.891 Personal history of nicotine dependence; Z79.01 Long term (current) use of anticoagulants; Z79.899 Other long term (current) drug therapy; Z20.822 Contact with and (suspected) exposure to COVID-19
CPT/HCPCS: 36415; 71046; 80048; 80053; 81001; 83880; 85025; 86140; 87040; 87070; 87077; 87186; 87205; 87804; 93005; 93010; 93306; 94640; 96374; 97161-GP; 97530-GP; 99285-25; A9270-GY; C9113; J0456; J0696; J1940; J1956; J7050; J7613-GY; J7620-GY; U0002

== ENCOUNTER 2021-06-22 10:09 | Inpatient (IN) | payer MEDICARE, OTHER ==
[2021-06-22] MEDS ORDERED: Albuterol/Ipratropium 3.0-0.5 MG/3 ML Neb Soln NEB PRN (10:35)
[2021-06-22] MEDS ORDERED: Bisacodyl 10 MG Supp RECTAL ONE (10:35)
[2021-06-22] MEDS ORDERED: Sodium Chloride 0.9% 10 ML Syringe FLUSH PRN ×2 (10:35)
[2021-06-22] MEDS: Levofloxacin/Dextrose 5%-Water 500 MG in Premix Bag 1 BAG IV SCH (12:30)
[2021-06-22] MEDS: Albuterol/Ipratropium 3.0-0.5 MG/3 ML Neb Soln NEB SCH ×3 (12:59→20:06)
[2021-06-22] MEDS ORDERED: Acetaminophen 500 MG Tab PO PRN (17:54)
[2021-06-22] MEDS: Acetaminophen 500 MG Tab PO PRN (18:16)
[2021-06-22] MEDS: Pantoprazole 40 MG Vial IVPUSH SCH (20:04)
[2021-06-22] MEDS: ARFORMOTEROL 15 MCG/2 ML INH SCH (20:07)
[2021-06-22] MEDS: Budesonide 0.5 MG/2 ML Neb Susp NEB SCH (20:22)
[2021-06-22] MEDS: Apixaban 5 MG Tab PO SCH (20:23)
[2021-06-22] MEDS: Temazepam 15 MG Cap PO PRN (20:27)
[2021-06-23 07:42] LABS: CHLORIDE,CL 102 mEq/L (98-106); SODIUM,NA 137 mEq/L (136-145)
[2021-06-23] MEDS: Budesonide 0.5 MG/2 ML Neb Susp NEB SCH ×2 (07:51→20:25)
[2021-06-23] MEDS: Polyethylene Glycol 3350 Powder 17 GM Packet PO SCH (07:51)
[2021-06-23] MEDS: Albuterol/Ipratropium 3.0-0.5 MG/3 ML Neb Soln NEB SCH ×4 (07:52→20:08)
[2021-06-23] MEDS: Tamsulosin 0.4 MG Cap.ER PO SCH (07:52)
[2021-06-23] MEDS: Apixaban 5 MG Tab PO SCH ×2 (07:52→20:20)
[2021-06-23] MEDS: Ferrous Sulfate 324 MG Tab.EC PO SCH (07:52)
[2021-06-23] MEDS: Furosemide 40 MG Tab PO SCH (07:52)
[2021-06-23] MEDS: UMECLIDIN INH SCH (07:54)
[2021-06-23] MEDS: FLUTICASONE INH SCH (07:54)
[2021-06-23] MEDS: VILANTER INH SCH (07:54)
[2021-06-23] MEDS: ARFORMOTEROL 15 MCG/2 ML INH SCH ×2 (07:55→20:08)
[2021-06-23] MEDS: Pantoprazole 40 MG Vial IVPUSH SCH ×2 (07:56→20:15)
[2021-06-23] MEDS: Diltiazem 120 MG Cap.CD PO SCH (07:56)
[2021-06-23] MEDS: Levofloxacin/Dextrose 5%-Water 500 MG in Premix Bag 1 BAG IV SCH (12:17)
[2021-06-23] MEDS: Temazepam 15 MG Cap PO PRN (20:20)
[2021-06-23] MEDS: Acetaminophen 500 MG Tab PO PRN (20:22)
[2021-06-24] MEDS: Acetaminophen 500 MG Tab PO PRN ×3 (03:01→19:34)
[2021-06-24] MEDS: Pantoprazole 40 MG Vial IVPUSH SCH ×2 (07:36→19:30)
[2021-06-24] MEDS: Tamsulosin 0.4 MG Cap.ER PO SCH (07:36)
[2021-06-24] MEDS: Apixaban 5 MG Tab PO SCH ×2 (07:36→19:28)
[2021-06-24] MEDS: Diltiazem 120 MG Cap.CD PO SCH (07:37)
[2021-06-24] MEDS: Furosemide 40 MG Tab PO SCH (07:37)
[2021-06-24] MEDS: Ferrous Sulfate 324 MG Tab.EC PO SCH (07:37)
[2021-06-24] MEDS: Albuterol/Ipratropium 3.0-0.5 MG/3 ML Neb Soln NEB SCH ×4 (07:53→19:28)
[2021-06-24] MEDS: Polyethylene Glycol 3350 Powder 17 GM Packet PO SCH (07:53)
[2021-06-24] MEDS: Budesonide 0.5 MG/2 ML Neb Susp NEB SCH ×2 (07:53→19:32)
[2021-06-24] MEDS: ARFORMOTEROL 15 MCG/2 ML INH SCH ×2 (07:55→19:29)
[2021-06-24] MEDS: UMECLIDIN INH SCH (07:55)
[2021-06-24] MEDS: FLUTICASONE INH SCH (07:55)
[2021-06-24] MEDS: VILANTER INH SCH (07:55)
[2021-06-24] MEDS: Levofloxacin/Dextrose 5%-Water 500 MG in Premix Bag 1 BAG IV SCH (11:59)
[2021-06-25] MEDS ORDERED: Menthol/Zinc Oxide Ointment 113 GM Tube TOP PRN (03:53)
[2021-06-25] MEDS: Acetaminophen 500 MG Tab PO PRN ×2 (06:27→14:32)
[2021-06-25] MEDS: Diltiazem 120 MG Cap.CD PO SCH (07:50)
[2021-06-25] MEDS: Pantoprazole 40 MG Vial IVPUSH SCH ×2 (07:50→20:24)
[2021-06-25] MEDS: Apixaban 5 MG Tab PO SCH ×2 (07:50→20:25)
[2021-06-25] MEDS: Tamsulosin 0.4 MG Cap.ER PO SCH (07:51)
[2021-06-25] MEDS: Furosemide 40 MG Tab PO SCH (07:51)
[2021-06-25] MEDS: Budesonide 0.5 MG/2 ML Neb Susp NEB SCH ×2 (07:51→20:25)
[2021-06-25] MEDS: Polyethylene Glycol 3350 Powder 17 GM Packet PO SCH (07:51)
[2021-06-25] MEDS: Ferrous Sulfate 324 MG Tab.EC PO SCH (07:51)
[2021-06-25] MEDS: Albuterol/Ipratropium 3.0-0.5 MG/3 ML Neb Soln NEB SCH ×4 (07:52→20:25)
[2021-06-25] MEDS: UMECLIDIN INH SCH (07:52)
[2021-06-25] MEDS: VILANTER INH SCH (07:52)
[2021-06-25] MEDS: FLUTICASONE INH SCH (07:52)
[2021-06-25] MEDS: ARFORMOTEROL 15 MCG/2 ML INH SCH ×2 (09:54→20:26)
[2021-06-25] MEDS ORDERED: Acetaminophen/HYDROcodone 325-5 MG Tab PO PRN (10:37)
--- NOTE | 2021-06-25 11:33 | PCM.PN ---
- General Info Date of Service: 06/25/21 Admission Dx/Problem (Free Text): Pneumonia Functional Status: Reports: Tolerating Diet. Denies: Pain Controlled, Ambulating - Review of Systems General: Reports: Weakness, Malaise. Denies: Fever, Fatigue HEENT: Reports: Rhinitis Pulmonary: Reports: Shortness of Breath, Cough. Denies: Sputum Cardiovascular: Reports: Edema. Denies: Chest Pain, Lightheadedness Gastrointestinal: Reports: Constipation. Denies: Abdominal Pain, Nausea, Vomiting Genitourinary: Reports: Frequency Musculoskeletal: Reports: Leg Pain Skin: Reports: Bruising Neurological: Reports: Weakness - Patient Data Vitals - Most Recent: Last Vital Signs Temp 97.8 F 06/25/21 07:48 Pulse 98 06/25/21 07:50 Resp 18 06/25/21 07:48 BP 132/81 06/25/21 07:50 Pulse Ox 94 L 06/25/21 07:48 Weight - Most Recent: 194 lb 3.2 oz I&O - Last 24 Hours: Intake & Output 06/24/21 06/25/21 06/25/21 22:59 06:59 14:59 Intake Total 500 150 Output Total 600 400 Balance -100 -250 Med Orders - Current: Current Medications Acetaminophen (Acetaminophen 500 Mg Tab) 1,000 mg PO Q6H PRN PRN Reason: Pain Last Admin: 06/25/21 06:27 Dose: 1,000 mg Documented by: Hydrocodone Bitart/Acetaminophen (Acetaminophen/Hydrocodone 325-5 Mg Tab) 1 tab PO Q6H PRN PRN Reason: Pain Albuterol/Ipratropium (Albuterol/Ipratropium 3.0-0.5 Mg/3 Ml Neb Soln) 3 ml NEB Q4H PRN PRN Reason: Shortness Of Breath/wheezing Albuterol/Ipratropium (Albuterol/Ipratropium 3.0-0.5 Mg/3 Ml Neb Soln) 3 ml NEB QID [facility] Last Admin: 06/25/21 07:52 Dose: 3 ml Documented by: Apixaban (Apixaban 5 Mg Tab) 5 mg PO BID [facility] Last Admin: 06/25/21 07:50 Dose: 5 mg Documented by: Budesonide (Budesonide 0.5 Mg/2 Ml Neb Susp) 0.25 mg NEB BIDRT [facility] Last Admin: 06/25/21 07:51 Dose: 0.25 mg Documented by: Calamine/Phenol (Menthol/Zinc Oxide Ointment 113 Gm Tube) 0 gm TOP Q6H PRN PRN Reason: Other Diltiazem HCl (Diltiazem 120 Mg Cap.Cd) 120 mg PO DAILY [facility] Last Admin: 06/25/21 07:50 Dose: 120 mg Documented by: Ferrous Sulfate (Ferrous Sulfate 324 Mg Tab.Ec) 324 mg PO DAILY [facility] Last Admin: 06/25/21 07:51 Dose: 324 mg Documented by: Furosemide (Furosemide 40 Mg Tab) 40 mg PO DAILY [facility] Last Admin: 06/25/21 07:51 Dose: 40 mg Documented by: Levofloxacin/Dextrose 500 mg/ (Premix) 100 mls @ 100 mls/hr IV Q24H [facility] Last Admin: 06/24/21 11:59 Dose: 100 mls/hr Documented by: Magnesium Oxide (Magnesium Oxide 250 Mg Tab) 250 mg PO BEDTIME [facility] Last Admin: 06/24/21 19:29 Dose: 250 mg Documented by: Fluticasone/Umeclidin/Vilanter [ Trelegy Ellipta 200- 62.5Own Med 0 inh INH DAILY [facility] Last Admin: 06/25/21 07:52 Dose: 1 inh Documented by: Arformoterol ( Brovana) 15mcg/2ml Own Med 1 each INH BID [facility] Last Admin: 06/25/21 09:54 Dose: 1 each Documented by: Pantoprazole Sodium (Pantoprazole 40 Mg Vial) 40 mg IVPUSH Q12H [facility] Last Admin: 06/25/21 07:50 Dose: 40 mg Documented by: Polyethylene Glycol (Polyethylene Glycol 3350 Powder 17 Gm Packet) 17 gm PO DAILY [facility] Last Admin: 06/25/21 07:51 Dose: 17 gm Documented by: Sodium Chloride (Sodium Chloride 0.9% 10 Ml Syringe) 10 ml FLUSH ASDIRECTED PRN PRN Reason: Keep Vein Open Tamsulosin HCl (Tamsulosin 0.4 Mg Cap.Er) 0.4 mg PO DAILY [facility] Last Admin: 06/25/21 07:51 Dose: 0.4 mg Documented by: Temazepam (Temazepam 15 Mg Cap) 15 mg PO BEDTIME PRN PRN Reason: Insomnia Last Admin: 06/23/21 20:20 Dose: 15 mg Documented by: Discontinued Medications Acetaminophen (Acetaminophen 500 Mg Tab) 500 mg PO Q6H PRN PRN Reason: Pain Bisacodyl (Bisacodyl 10 Mg Supp) 10 mg RECTAL ONETIME ONE Stop: 06/22/21 10:36 Last Admin: 06/22/21 18:03 Dose: Not Given Documented by: Sodium Chloride (Sodium Chloride 0.9% 10 Ml Syringe) 10 ml FLUSH ASDIRECTED PRN PRN Reason: Keep Vein Open - Exam General: Alert, Oriented HEENT: Mucous Membr. Moist/[place] Neck: Supple Lungs: Decreased Breath Sounds, Rhonchi Cardiovascular: Regular Rate, Regular Rhythm GI/Abdominal Exam: Normal Bowel Sounds, Soft, Non-Tender Extremities: Pedal Edema (2+ pitting edema of lower extremities) Skin: Ecchymosis (significant bruising on arms and legs) Neurological: No New Focal Deficit - Patient Data Result Diagrams: 06/23/21 05:11 06/23/21 05:11 Sepsis Event Note - Focused Exam Vital Signs: Vital Signs Temp Pulse Pulse Resp BP BP Pulse Ox 06/25/21 07:50 98 132/81 06/25/21 07:48 97.8 F 98 18 132/81 94 L - Problem List & Annotations (1) Pneumonia SNOMED Code(s): 186192595 Code(s): J18.9 - PNEUMONIA, UNSPECIFIED ORGANISM Status: Acute Priority: High Current Visit: Yes (2) Weakness SNOMED Code(s): 75236740 Code(s): R53.1 - WEAKNESS Status: Acute Priority: High Current Visit: Yes - Problem List Review Problem List Initiated/Reviewed/Updated: Yes - My Orders Last 24 Hours: My Active Orders 06/25/21 03:53 Menthol/Zinc Oxide [Calmoseptine] 0 gm TOP Q6H PRN 06/25/21 10:37 Acetaminophen/HYDROcodone [[place] 325-5 MG] 1 tab PO Q6H PRN 06/26/21 05:11 Chest 2V [CR] AM BASIC METABOLIC PANEL,BMP [CHEM] AM C-REACTIVE PROTEIN [CHEM] AM CBC WITH AUTO DIFF [HEME] AM - Assessment Assessment:: Pneumonia Weakness Leg pain - Plan Plan:: Patient resting comfortably in chair. Admits to significant right leg pain at times that does not feel tylenol is adequately covering. Feels related to positioning in recliner. Patient has not been ambulatory for more than a few feet to the bathroom. has been resistant to walking with staff as states legs are too weak and is afraid of falling. Does not believe he can at this point. Does get "played out with just walking a short distance to the bathroom". Voids often. Oxygen sats have been adequate on room air. Does still have 2+edema in his legs bilaterally. Lung sounds are diminished, fine rales in the right mid lobe and base. Sound improved from admission to acute inpatient. Will repeat labs in am. discussed discharge plan with patient due to pain, immobility, and weakness. Does feel he will need a short stay in the assisted as "grandson states would be covered for a time while I rehab through the pneumonia and weakness". Will have social contact worker discuss with patient in am, would like GS.
[2021-06-25] MEDS: Levofloxacin/Dextrose 5%-Water 500 MG in Premix Bag 1 BAG IV SCH (12:21)
[2021-06-26] MEDS: Budesonide 0.5 MG/2 ML Neb Susp NEB SCH ×2 (07:14→19:45)
[2021-06-26] MEDS: Pantoprazole 40 MG Vial IVPUSH SCH (07:14)
[2021-06-26] MEDS: Diltiazem 120 MG Cap.CD PO SCH (07:16)
[2021-06-26] MEDS: Polyethylene Glycol 3350 Powder 17 GM Packet PO SCH (07:16)
[2021-06-26] MEDS: ARFORMOTEROL 15 MCG/2 ML INH SCH ×2 (07:16→19:40)
[2021-06-26] MEDS: Tamsulosin 0.4 MG Cap.ER PO SCH (07:20)
[2021-06-26] MEDS: Albuterol/Ipratropium 3.0-0.5 MG/3 ML Neb Soln NEB SCH ×4 (07:20→19:34)
[2021-06-26] MEDS: Apixaban 5 MG Tab PO SCH ×2 (07:20→19:39)
[2021-06-26] MEDS: Furosemide 40 MG Tab PO SCH (07:20)
[2021-06-26] MEDS: Ferrous Sulfate 324 MG Tab.EC PO SCH (07:20)
[2021-06-26] MEDS: FLUTICASONE INH SCH (07:21)
[2021-06-26] MEDS: UMECLIDIN INH SCH (07:21)
[2021-06-26] MEDS: VILANTER INH SCH (07:21)
[2021-06-26 08:00] LABS: CHLORIDE,CL 101 mEq/L (98-106); SODIUM,NA 139 mEq/L (136-145)
[2021-06-26] MEDS: Levofloxacin/Dextrose 5%-Water 500 MG in Premix Bag 1 BAG IV SCH (11:59)
[2021-06-26] MEDS: Acetaminophen 500 MG Tab PO PRN (20:52)
[2021-06-26] MEDS: Temazepam 15 MG Cap PO PRN (20:52)
[2021-06-27] MEDS: Pantoprazole 40 MG Tab.CR PO SCH (06:46)
[2021-06-27] MEDS: Albuterol/Ipratropium 3.0-0.5 MG/3 ML Neb Soln NEB SCH ×4 (07:31→19:23)
[2021-06-27] MEDS: ARFORMOTEROL 15 MCG/2 ML INH SCH ×2 (07:39→19:28)
[2021-06-27] MEDS: UMECLIDIN INH SCH (07:44)
[2021-06-27] MEDS: VILANTER INH SCH (07:44)
[2021-06-27] MEDS: FLUTICASONE INH SCH (07:44)
[2021-06-27] MEDS: Polyethylene Glycol 3350 Powder 17 GM Packet PO SCH ×2 (07:44→07:48)
[2021-06-27] MEDS: Budesonide 0.5 MG/2 ML Neb Susp NEB SCH ×2 (07:45→19:26)
[2021-06-27] MEDS: Apixaban 5 MG Tab PO SCH ×2 (07:46→19:24)
[2021-06-27] MEDS: Ferrous Sulfate 324 MG Tab.EC PO SCH (07:46)
[2021-06-27] MEDS: Tamsulosin 0.4 MG Cap.ER PO SCH (07:46)
[2021-06-27] MEDS: Diltiazem 120 MG Cap.CD PO SCH (07:47)
[2021-06-27] MEDS: Furosemide 40 MG Tab PO SCH (07:47)
[2021-06-27] MEDS: Acetaminophen 500 MG Tab PO PRN (20:55)
[2021-06-27] MEDS: Temazepam 15 MG Cap PO PRN (20:55)
[2021-06-28] MEDS: Pantoprazole 40 MG Tab.CR PO SCH (06:08)
[2021-06-28] MEDS: Budesonide 0.5 MG/2 ML Neb Susp NEB SCH (07:57)
[2021-06-28] MEDS: Albuterol/Ipratropium 3.0-0.5 MG/3 ML Neb Soln NEB SCH (07:57)
[2021-06-28] MEDS: VILANTER INH SCH (07:58)
[2021-06-28] MEDS: UMECLIDIN INH SCH (07:58)
[2021-06-28] MEDS: FLUTICASONE INH SCH (07:58)
[2021-06-28] MEDS: ARFORMOTEROL 15 MCG/2 ML INH SCH (07:59)
[2021-06-28] MEDS: Tamsulosin 0.4 MG Cap.ER PO SCH (07:59)
[2021-06-28] MEDS: Ferrous Sulfate 324 MG Tab.EC PO SCH (07:59)
[2021-06-28] MEDS: Polyethylene Glycol 3350 Powder 17 GM Packet PO SCH (07:59)
[2021-06-28] MEDS: Apixaban 5 MG Tab PO SCH (07:59)
[2021-06-28] MEDS: Diltiazem 120 MG Cap.CD PO SCH (07:59)
[2021-06-28] MEDS: Furosemide 40 MG Tab PO SCH (08:00)
--- NOTE | 2021-06-28 09:17 | PCM.DCSUM1 ---
Discharge Summary - Hospital Course Free Text/Narrative:: Jesus Alberto is an 86 year old male who was transferred to swing bed from acute inpatient for ongoing treatment with IV antibiotics and physical therapy. Patient has been weak, unable to ambulate much due to this. Has good appetite, less cough and now afebrile. Social service consult for discharge plan. Diagnosis: Stroke: No Modified [place] Scale: No Symptoms at All Modified [place] Scale Score: 0 - Discharge Data Discharge Date: 06/28/21 Discharge Disposition: DC/Tfer to SNF 03 Condition: Fair - Referral to Home Health Primary Care Physician: Tung Flores MD - Discharge Diagnosis/Problem(s) (1) Pneumonia SNOMED Code(s): 348344376 ICD Code: J18.9 - PNEUMONIA, UNSPECIFIED ORGANISM Status: Acute Priority: High (2) Weakness SNOMED Code(s): 63937762 ICD Code: R53.1 - WEAKNESS Status: Acute Priority: High - Patient Summary/Data Consults: Consultations 06/22/21 10:35 PT Evaluation and Treatment [CONS] Routine 06/26/21 09:27 Consult to Case Management/Blanket [employer]per [CONS] Routine Hospital Course: Patient is feeling better. Minimal cough. Denies increased shortness of breath. No fevers. Has continued to struggle with weakness in his legs making ambulation very difficult despite working with PT. Finished course of antibiotics. Labs have improved. Does have increased edema, on Lasix. ProBNP is stable. Social service met with patient, transfer to [facility] for ongoing rehab with hope to return home. - Patient Instructions Diet: Low Sodium Activity: As Tolerated - Discharge Plan *PRESCRIPTION DRUG MONITORING PROGRAM REVIEWED*: No *COPY OF PRESCRIPTION DRUG MONITORING REPORT IN PATIENT DAVID: No Prescriptions/Med Rec: Albuterol/Ipratropium [DuoNeb 3.0-0.5 MG/3 ML] 3 ml NEB Q4H PRN #30 neb PRN Reason: Shortness Of Breath/wheezing Albuterol/Ipratropium [DuoNeb 3.0-0.5 MG/3 ML] 3 ml NEB QID #120 neb Furosemide [Lasix] 40 mg PO DAILY #30 tablet Furosemide [Lasix] 20 mg PO DAILY #30 tab Home Medications: Home Meds Acetaminophen [Tylenol] 650 mg PO ASDIRECTED PRN 06/19/21 [History] Apixaban [Eliquis] 5 mg PO BID 06/19/21 [History] Ascorbic Acid [Vitamin C] 1,000 mg PO DAILY 06/19/21 [History] Cholecalciferol (Vitamin D3) [Vitamin D3] 125 mcg PO Q48H 06/19/21 [History] Diltiazem [Cardizem CD] 120 mg PO DAILY 06/19/21 [History] Ferrous Sulfate 325 mg PO DAILY 06/19/21 [History] Fluticasone/Umeclidin/Vilanter [Trelegy Ellipta 200-62.5-25] 1 inh INH DAILY 06/19/21 [History] Folic Acid 1 mg PO DAILY 06/19/21 [History] Magnesium 250 mg PO BEDTIME 06/19/21 [History] Tamsulosin [Tamsulosin 24 Hr] 0.4 mg PO DAILY 06/19/21 [History] Vitamin E 100 unit PO DAILY 06/19/21 [History] polyethylene glycoL 3350 [MiraLAX] 17 gm PO DAILY 06/19/21 [History] Arformoterol [Brovana] 1 puff INH BID 06/21/21 [History] Budesonide [Pulmicort] 0.25 mg NEB BID 06/21/21 [History] Albuterol/Ipratropium [DuoNeb 3.0-0.5 MG/3 ML] 3 ml NEB Q4H PRN #30 neb 06/28/21 [Rx] Albuterol/Ipratropium [DuoNeb 3.0-0.5 MG/3 ML] 3 ml NEB QID #120 neb 06/28/21 [Rx] Furosemide [Lasix] 20 mg PO DAILY #30 tab 06/28/21 [Rx] Furosemide [Lasix] 40 mg PO DAILY #30 tablet 06/28/21 [Rx] - Discharge Summary/Plan Comment DC Time >30 min.: No Total # of Minutes for Discharge Time: 40 - General Info Date of Service: 06/29/21 Admission Dx/Problem (Free Text: Pneumonia Functional Status: Reports: Pain Controlled, Tolerating Diet, Urinating. Denies: Ambulating - Review of Systems General: Reports: Weakness, Fatigue, Malaise. Denies: Fever HEENT: Reports: No Symptoms Pulmonary: Denies: Shortness of Breath, Cough Cardiovascular: Reports: Edema. Denies: Chest Pain Gastrointestinal: Denies: Abdominal Pain, Constipation, Diarrhea, Nausea, Vomiting Genitourinary: Reports: Frequency Musculoskeletal: Reports: No Symptoms Skin: Reports: No Symptoms Neurological: Reports: Weakness - Patient Data Vitals - Most Recent: Last Vital Signs Temp 98.8 F 06/28/21 08:00 Pulse 97 06/28/21 08:00 Resp 18 06/28/21 08:00 BP 103/69 06/28/21 08:00 Pulse Ox 97 06/28/21 08:00 Weight - Most Recent: 193 lb 3.2 oz I&O - Last 24 hours: Intake & Output 06/27/21 06/28/21 06/28/21 22:59 06:59 14:59 Intake Total 900 300 Output Total 750 500 Balance 150 -200 Med Orders - Current: Current Medications Acetaminophen (Acetaminophen 500 Mg Tab) 1,000 mg PO Q6H PRN PRN Reason: Pain Last Admin: 06/27/21 20:55 Dose: 1,000 mg Documented by: Hydrocodone Bitart/Acetaminophen (Acetaminophen/Hydrocodone 325-5 Mg Tab) 1 tab PO Q6H PRN PRN Reason: Pain Last Admin: 06/26/21 03:27 Dose: 1 tab Documented by: Albuterol/Ipratropium (Albuterol/Ipratropium 3.0-0.5 Mg/3 Ml Neb Soln) 3 ml NEB Q4H PRN PRN Reason: Shortness Of Breath/wheezing Albuterol/Ipratropium (Albuterol/Ipratropium 3.0-0.5 Mg/3 Ml Neb Soln) 3 ml NEB QID [facility] Last Admin: 06/28/21 07:57 Dose: 3 ml Documented by: Apixaban (Apixaban 5 Mg Tab) 5 mg PO BID [facility] Last Admin: 06/28/21 07:59 Dose: 5 mg Documented by: Budesonide (Budesonide 0.5 Mg/2 Ml Neb Susp) 0.25 mg NEB BIDRT [facility] Last Admin: 06/28/21 07:57 Dose: 0.25 mg Documented by: Calamine/Phenol (Menthol/Zinc Oxide Ointment 113 Gm Tube) 0 gm TOP Q6H PRN PRN Reason: Other Diltiazem HCl (Diltiazem 120 Mg Cap.Cd) 120 mg PO DAILY [facility] Last Admin: 06/28/21 07:59 Dose: 120 mg Documented by: Ferrous Sulfate (Ferrous Sulfate 324 Mg Tab.Ec) 324 mg PO DAILY [facility] Last Admin: 06/28/21 07:59 Dose: 324 mg Documented by: Furosemide (Furosemide 40 Mg Tab) 40 mg PO DAILY [facility] Last Admin: 06/28/21 08:00 Dose: 40 mg Documented by: Magnesium Oxide (Magnesium Oxide 250 Mg Tab) 250 mg PO BEDTIME [facility] Last Admin: 06/27/21 19:24 Dose: 250 mg Documented by: Fluticasone/Umeclidin/Vilanter [ Trelegy Ellipta 200- 62.5Own Med 0 inh INH DAILY [facility] Last Admin: 06/28/21 07:58 Dose: 1 inh Documented by: Arformoterol ( Brovana) 15mcg/2ml Own Med 1 each INH BID [facility] Last Admin: 06/28/21 07:59 Dose: 1 each Documented by: Pantoprazole Sodium (Pantoprazole 40 Mg Tab.Cr) 40 mg PO ACBREAKFAST [facility] Last Admin: 06/28/21 06:08 Dose: 40 mg Documented by: Polyethylene Glycol (Polyethylene Glycol 3350 Powder 17 Gm Packet) 17 gm PO DAILY [facility] Last Admin: 06/28/21 07:59 Dose: 17 gm Documented by: Sodium Chloride (Sodium Chloride 0.9% 10 Ml Syringe) 10 ml FLUSH ASDIRECTED PRN PRN Reason: Keep Vein Open Tamsulosin HCl (Tamsulosin 0.4 Mg Cap.Er) 0.4 mg PO DAILY [facility] Last Admin: 06/28/21 07:59 Dose: 0.4 mg Documented by: Temazepam (Temazepam 15 Mg Cap) 15 mg PO BEDTIME PRN PRN Reason: Insomnia Last Admin: 06/27/21 20:55 Dose: 15 mg Documented by: Discontinued Medications Acetaminophen (Acetaminophen 500 Mg Tab) 500 mg PO Q6H PRN PRN Reason: Pain Bisacodyl (Bisacodyl 10 Mg Supp) 10 mg RECTAL ONETIME ONE Stop: 06/22/21 10:36 Last Admin: 06/22/21 18:03 Dose: Not Given Documented by: Levofloxacin/Dextrose 500 mg/ (Premix) 100 mls @ 100 mls/hr IV Q24H [facility] Stop: 06/26/21 12:01 Last Admin: 06/26/21 11:59 Dose: 100 mls/hr Documented by: Pantoprazole Sodium (Pantoprazole 40 Mg Vial) 40 mg IVPUSH Q12H [facility] Last Admin: 06/26/21 07:14 Dose: 40 mg Documented by: Sodium Chloride (Sodium Chloride 0.9% 10 Ml Syringe) 10 ml FLUSH ASDIRECTED PRN PRN Reason: Keep Vein Open - Exam General: Reports: Alert, Oriented HEENT: Reports: Mucous Membr. Moist/[place] Neck: Reports: Supple Lungs: Reports: Decreased Breath Sounds, Crackles Cardiovascular: Reports: Regular Rate, Regular Rhythm GI/Abdominal Exam: Normal Bowel Sounds, Soft, Non-Tender Extremities: Normal Inspection, Pedal Edema (2+) Skin: Reports: Warm, Dry Neurological: Reports: No New Focal Deficit
== END 2021-06-28 10:42 | DRG 195 ==
LOC: CC.MS 10:09 → UNDOADMIN 10:25
PROVIDERS: ADMIT Physician Assistant Medical; ATTEND Family Medicine
DX: J18.9 Pneumonia, unspecified organism (principal); R53.1 Weakness; I50.9 Heart failure, unspecified; Z20.822 Contact with and (suspected) exposure to COVID-19
CPT/HCPCS: 36415; 71046; 80048; 83880; 85025; 86140; 94640; 97110-GP; 97530-GP; A9270-GY; C9113; J1956; J7620-GY; U0002